=== PATIENT | female | born 1950 | race Caucasian/White ===

== ENCOUNTER 2022-07-11 03:55 | Day surgery (SDC) | payer OTHER, MEDICARE ==
[2022-07-09 13:15] VITALS: BMI 22.6
[2022-07-11] MEDS ORDERED: LIDOCAINE HCL/PF 2% SDV 5ML VIAL ONE (07:12)
[2022-07-11] MEDS ORDERED: PROPOFOL 20 ML ONE (07:12)
[2022-07-11] MEDS ORDERED: ROCURONIUM BROMIDE 50 MG/5 ML SYRINGE ONE (07:12)
[2022-07-11] MEDS ORDERED: SUCCINYLCHOLINE CHLORIDE 200 MG/10 ML SYRINGE ONE (07:12)
[2022-07-11] MEDS ORDERED: MIDAZOLAM HCL 2 MG/2 ML SINGLE DOSE VIAL ONE (07:12)
[2022-07-11] MEDS ORDERED: BUPIVACAINE HCL/PF 0.5% (5MG/ML) 10 ML VIAL ONE (07:17)
[2022-07-11] MEDS ORDERED: GENTAMICIN SO4 80 MG/2 ML VIAL ONE (07:17)
[2022-07-11] MEDS ORDERED: VANCOMYCIN 1,000 MG VIAL (RESTRICTED TO ID ONLY) ONE (07:17)
[2022-07-11] MEDS ORDERED: SEVOFLURANE 250 ML BTL ONE (07:18)
[2022-07-11] MEDS ORDERED: BUPIVACAINE LIPOSOME/PF (EXPAREL) 266 MG/20 ML VIAL ONE (07:18)
[2022-07-11] MEDS ORDERED: BACITRACIN ZINC 15 GM TUBE TOPICAL OINTMENT ONE (07:18)
[2022-07-11 07:26] LABS: INR 0.97 (0.83-1.09); PROTHROMBIN TIME (PATIENT) 11.2 SEC (9.7-13.0)
[2022-07-11 07:28] LABS: ACTIVATED PTT 50.6 SECONDS (25.2-36.5)
[2022-07-11] MEDS ORDERED: LIDOCAINE 1%/EPI 1:100000 (20 ML MULTI DOSE VIAL) IJ ONE (07:48)
[2022-07-11] MEDS ORDERED: ceFAZolin SODIUM 1 GM VIAL IVPB ONE (07:49)
[2022-07-11] MEDS ORDERED: VANCOMYCIN 1 GM in NS (PRE-DOCKED) 1,000 MG/250 ML (RESTRICTED TO ID ONLY) IVPB ONE (07:49)
[2022-07-11 08:34] VITALS: BP 120/55; PULSE 52; RESP 16; TEMP 97.7
== END 2022-07-11 09:38 | disposition home or self-care (01) ==
LOC: J2C 03:55 → UNDOADMIN 03:55 → JASU-SURG 03:55 → EDSTATUS 08:00 → JASU-SURG 09:38 → UNDODISIN 09:38
PROVIDERS: ATTEND Neurological Surgery
DX: Z53.8 Procedure and treatment not carried out for other reasons (principal)
CPT/HCPCS: 36415; 85610; 85730; 86850; 86900; 86901

== ENCOUNTER 2022-07-16 04:00 | Observation (INO) | payer OTHER, MEDICARE ==
[2022-07-15 15:21] VITALS: BMI 22.6
[2022-07-16] MEDS ORDERED: VANCOMYCIN 1,000 MG VIAL (RESTRICTED TO ID ONLY) ONE ×2 (07:01→07:43)
[2022-07-16] MEDS ORDERED: GENTAMICIN SO4 80 MG/2 ML VIAL ONE (07:01)
[2022-07-16] MEDS ORDERED: LIDOCAINE 1%/EPI 1:100000 (20 ML MULTI DOSE VIAL) IJ ONE ×2 (07:21→09:03)
[2022-07-16] MEDS ORDERED: ceFAZolin SODIUM 1 GM VIAL IVPB ONE ×2 (07:21→08:44)
[2022-07-16] MEDS ORDERED: VANCOMYCIN 1 GM in D5W (PRE-DOCKED) 1,000 MG/250 ML (RESTRICTED TO ID ONLY IVPB ONE ×2 (07:22→08:44)
[2022-07-16] MEDS ORDERED: PROPOFOL 20 ML ONE (07:41)
[2022-07-16] MEDS ORDERED: MIDAZOLAM HCL 2 MG/2 ML SINGLE DOSE VIAL ONE (07:41)
[2022-07-16] MEDS ORDERED: ROCURONIUM BROMIDE 50 MG/5 ML SYRINGE ONE (07:41)
[2022-07-16] MEDS ORDERED: LIDOCAINE HCL/PF 2% SDV 5ML VIAL ONE (07:43)
[2022-07-16] MEDS ORDERED: ceFAZolin SODIUM 1 GM VIAL ONE (07:43)
[2022-07-16] MEDS ORDERED: SODIUM CHLORIDE 0.9% P/F 10 ML VIAL IJ ONE (07:43)
[2022-07-16] MEDS ORDERED: ETOMIDATE 20 MG/10 ML VIAL IVPUSH ONE (08:28)
[2022-07-16] MEDS ORDERED: GLYCOPYRROLATE 0.2 MG/1 ML VIAL ONE ×2 (08:29→09:29)
[2022-07-16] MEDS ORDERED: TRANEXAMIC ACID 1000 MG/10 ML VIAL ONE (08:34)
[2022-07-16] MEDS ORDERED: NEOSTIGMINE METHYLSULFATE 0.5 MG/1 ML - 10 ML MDV ONE (09:30)
[2022-07-16] MEDS ORDERED: ONDANSETRON 4 MG/2 ML VIAL ONE (09:33)
[2022-07-16] MEDS ORDERED: DEXAMETHASONE SOD PHOSPHATE 4 MG/1 ML VIAL ONE (09:33)
[2022-07-16] MEDS ORDERED: ONDANSETRON 4 MG/2 ML VIAL IVPUSH PRN (09:48)
[2022-07-16] MEDS ORDERED: PROMETHAZINE HCL 25 MG/1 ML VIAL IVPB PRN (09:48)
[2022-07-16] MEDS ORDERED: oxyCODONE HCL 5 MG TABLET ONE (13:37)
[2022-07-16] MEDS: oxyCODONE HCL 5 MG TABLET PO PRN ×2 (13:40→22:07)
[2022-07-16] MEDS: LACTATED RINGERS SOLUTION 1,000 ML IV SCH (14:05)
[2022-07-16] MEDS: GABAPENTIN 300 MG CAPSULE PO PRN (18:09)
[2022-07-16] MEDS ORDERED: CYCLOBENZAPRINE HCL 10 MG TABLET (FP) PO SCH (22:00)
[2022-07-16] MEDS ORDERED: clonazePAM 0.5 MG TABLET PO SCH (22:00)
[2022-07-17] MEDS: GABAPENTIN 300 MG CAPSULE PO PRN (01:37)
[2022-07-17] MEDS: LACTATED RINGERS SOLUTION 1,000 ML IV SCH ×2 (01:41→10:36)
[2022-07-17] MEDS: oxyCODONE HCL 5 MG TABLET PO PRN ×2 (04:13→10:37)
[2022-07-17 05:31] VITALS: RESP 18
[2022-07-17 06:56] LABS: BASO % 0.2 % (0-2.0); EOS % 0.4 % (0-4.5); HEMATOCRIT 26.9 % (32.4-45.2); HEMOGLOBIN 9.3 GM/dL (10.7-15.3); LYMPH % 18.6 % (8-40); MCH 32.1 pg (25.7-33.7); MCHC 34.6 g/dl (32.0-36.0); MEAN CELL VOLUME 92.7 fl (80-96); MEAN PLT VOLUME 8.5 fl (7.5-11.1); MONO % 6.4 % (3.8-10.2); NEUT % 74.4 % (42.8-82.8); PLATELET COUNT 177 10^3/uL (134-434); RDW 13.3 % (11.6-15.6); WHITE BLOOD COUNT 8.2 K/mm3 (4.0-10.0)
[2022-07-17] MEDS ORDERED: LEVOTHYROXINE NA 88 MCG TABLET (FP) PO SCH (07:00)
[2022-07-17 07:13] LABS: POTASSIUM 4.8 mmol/L (3.5-5.1)
[2022-07-17 07:16] LABS: CALCIUM 9.6 mg/dL (8.5-10.1)
[2022-07-17 07:17] LABS: BLOOD UREA NITROGEN 21.5 mg/dL (7-18); MAGNESIUM 1.7 mg/dL (1.8-2.4)
[2022-07-17 07:20] LABS: CREATININE 0.7 mg/dL (0.55-1.3)
[2022-07-17 07:21] LABS: BILIRUBIN,TOTAL 0.6 mg/dL (0.2-1); TOT PROT 5.4 g/dl (6.4-8.2)
[2022-07-17 08:56] VITALS: TEMP 97.9
[2022-07-17] MEDS ORDERED: DOCUSATE SODIUM 100 MG CAPSULE (FP) PO SCH (10:00)
[2022-07-17] MEDS ORDERED: LATANOPROST 0.005% OPHTH SOLN 2.5ML BOTTLE OU SCH (10:00)
[2022-07-17] MEDS ORDERED: PRAMIPEXOLE DI HCL 0.75 MG PO SCH (10:00)
[2022-07-17] MEDS ORDERED: MAGNESIUM SULF 50% (8.12 MEQ/2 ML-1 GM VIAL) IVPB ONE (13:13)
[2022-07-17] MEDS ORDERED: MAGNESIUM OXIDE 400 MG TABLET (FP) PO ONE (13:50)
[2022-07-17 14:55] VITALS: BP 95/58; PULSE 64
== END 2022-07-17 15:17 | disposition home or self-care (01) ==
LOC: J2C 04:00 → INTOOBSV 04:00 → UNDOADMOB 04:00 → J2C 11:14 → J4S 14:16
PROVIDERS: ADMIT Neurological Surgery; ATTEND Internal Medicine
DX: I95.9 Hypotension, unspecified (principal); R00.1 Bradycardia, unspecified; H35.00 Unspecified background retinopathy; M47.892 Other spondylosis, cervical region; F32.9 Major depressive disorder, single episode, unspecified; Z96.653 Presence of artificial knee joint, bilateral; M19.90 Unspecified osteoarthritis, unspecified site; Z88.8 Allergy status to other drugs, medicaments and biological substances; Z87.891 Personal history of nicotine dependence
CPT/HCPCS: 36415; 80053; 83735; 84100; 84439; 84443; 84484; 85025; 86850; 86900; 86901; 86922; 93005; 93010; 93306-TC; 93970-TC; 94760; 96374; 97116-GP; 97161-GP; C9803-CS; G0378; U0003; U0005

== ENCOUNTER 2022-10-03 04:05 | Day surgery (SDC) | payer OTHER, MEDICARE ==
[2022-09-27 17:45] VITALS: BMI 24.0
[2022-10-03] MEDS ORDERED: PROPOFOL 20 ML ONE (07:02)
[2022-10-03] MEDS ORDERED: MIDAZOLAM HCL 2 MG/2 ML SINGLE DOSE VIAL ONE (07:02)
[2022-10-03] MEDS ORDERED: ROCURONIUM BROMIDE 50 MG/5 ML SYRINGE ONE (07:02)
[2022-10-03] MEDS ORDERED: HYDROmorphone HCl 2 MG/ML VIAL ONE (07:02)
[2022-10-03] MEDS ORDERED: GENTAMICIN SO4 80 MG/2 ML VIAL ONE (07:21)
[2022-10-03] MEDS ORDERED: BUPIVACAINE HCL/PF 0.5% (5MG/ML) 10 ML VIAL ONE (07:22)
[2022-10-03] MEDS ORDERED: THROMBIN (BOVINE) 5,000 UNIT VIAL TP ONE ×3 (07:22→08:10)
[2022-10-03] MEDS ORDERED: BACITRACIN ZINC 15 GM TUBE TOPICAL OINTMENT ONE (07:22)
[2022-10-03] MEDS ORDERED: HEPARIN NA (PORCINE) 5,000 UNITS/ML 1ML VIAL ONE (07:22)
[2022-10-03] MEDS ORDERED: BUPIVACAINE LIPOSOME/PF (EXPAREL) 266 MG/20 ML VIAL ONE (07:32)
[2022-10-03] MEDS ORDERED: LIDOCAINE 1%/EPI 1:100000 (20 ML MULTI DOSE VIAL) IJ ONE ×2 (07:47→09:12)
[2022-10-03] MEDS ORDERED: ceFAZolin SODIUM 1 GM VIAL IVPB ONE (07:48)
[2022-10-03] MEDS ORDERED: VANCOMYCIN 1 GM in D5W (PRE-DOCKED) 1,000 MG/250 ML (RESTRICTED TO ID ONLY IVPB ONE (07:48)
[2022-10-03] MEDS ORDERED: GENTAMICIN SO4 80 MG/2 ML VIAL IVPB ONE (08:10)
[2022-10-03] MEDS ORDERED: HYDROGEN PEROXIDE 473 ML PO ONE (08:11)
[2022-10-03] MEDS ORDERED: ePHEDrine SULFATE 50 MG/1 ML AMPULE ONE (08:27)
[2022-10-03] MEDS ORDERED: SUGAMMADEX SODIUM 200 MG/2 ML VIAL ONE (09:44)
[2022-10-03] MEDS ORDERED: ONDANSETRON 4 MG/2 ML VIAL IVPUSH PRN (10:27)
[2022-10-03] MEDS ORDERED: ASPIRIN 325 MG TABLET PO ONE ×2 (10:28→10:32)
[2022-10-03] MEDS ORDERED: LACTATED RINGERS SOLUTION 1,000 ML IV SCH (10:30)
[2022-10-03] MEDS ORDERED: PATIENT'S OWN MEDICATION (NON-FORMULARY) (Calcium Citrate [Calcium Citrate] 200 MG Tablet) PO SCH ×2 (10:45→19:30)
[2022-10-03] MEDS ORDERED: DEXTROSE 5%-NORMAL SALINE 1,000 ML IV SCH (10:45)
[2022-10-03 13:34] LABS: POTASSIUM 3.7 mmol/L (3.5-5.1)
[2022-10-03 13:35] LABS: CALCIUM 9.4 mg/dL (8.5-10.1)
[2022-10-03 13:36] LABS: BLOOD UREA NITROGEN 24.1 mg/dL (7-18)
[2022-10-03 13:39] LABS: CREATININE 0.9 mg/dL (0.55-1.3)
[2022-10-03] MEDS ORDERED: PATIENT'S OWN MEDICATION (NON-FORMULARY) (Oxycodone Hcl [Oxaydo] 5 MG Tablet.Orl) PO SCH ×2 (14:00→19:30)
[2022-10-03] MEDS ORDERED: PATIENT'S OWN MEDICATION (NON-FORMULARY) (Gabapentin [Gabapentin] 600 MG Tablet) PO SCH (14:00)
[2022-10-03 14:34] VITALS: BP 107/44; PULSE 49; RESP 18; TEMP 97.7
[2022-10-03] MEDS ORDERED: clonazePAM 0.5 MG TABLET PO PRN (15:25)
[2022-10-03] MEDS ORDERED: MUPIROCIN 2% TOPICAL OINTMENT FOR DECOLONIZATION NS SCH ×2 (22:00)
[2022-10-03] MEDS ORDERED: PATIENT'S OWN MEDICATION (NON-FORMULARY) (Magnesium Oxide [Magnesium Oxide] 400 MG Tablet) PO SCH (22:00)
[2022-10-03] MEDS ORDERED: CHLORHEXIDINE GLUCONATE 4% CLEANSER FOR DECOLONIZATION TP SCH ×2 (22:00)
[2022-10-03] MEDS ORDERED: CYCLOBENZAPRINE HCL 10 MG TABLET (FP) PO SCH (22:00)
[2022-10-03] MEDS ORDERED: MAGNESIUM OXIDE 400 MG TABLET (FP) PO SCH (22:00)
[2022-10-03] MEDS ORDERED: valACYclovir HCL 500 MG TABLET (FP) PO SCH (22:00)
[2022-10-03] MEDS ORDERED: GABAPENTIN 300 MG CAPSULE PO SCH (22:00)
[2022-10-03] MEDS ORDERED: PATIENT'S OWN MEDICATION (NON-FORMULARY) (Clonazepam [Clonazepam] 1 MG Tablet) PO SCH (22:00)
[2022-10-04] MEDS ORDERED: LEVOTHYROXINE NA 88 MCG TABLET (FP) PO SCH (07:00)
[2022-10-04] MEDS ORDERED: ARTIFICIAL TEARS (POLYVINYL ALCOHOL) OPTH DROPS OU SCH (10:00)
[2022-10-04] MEDS ORDERED: PRAMIPEXOLE DI HCL 0.75 MG PO SCH ×2 (10:00)
[2022-10-04] MEDS ORDERED: PROPYLENE GLYCOL OU SCH (10:00)
[2022-10-04] MEDS ORDERED: MULTIVITAMINS (DAILY MVI) TABLET (FP) PO SCH (10:00)
[2022-10-04] MEDS ORDERED: DOCUSATE SODIUM 100 MG CAPSULE (FP) PO SCH (10:00)
[2022-10-04] MEDS ORDERED: [UNRECOGNIZED DRUG - OTHER] OU SCH (10:00)
[2022-10-04] MEDS ORDERED: PATIENT'S OWN MEDICATION (NON-FORMULARY) (Multivitamin [Multivitamin] 1 EACH Tablet) PO SCH (10:00)
[2022-10-04] MEDS ORDERED: LACTOBACILLUS ACIDOPHILUS 1 TABLET PO SCH (10:00)
[2022-10-04] MEDS ORDERED: PEG OU SCH (10:00)
[2022-10-04] MEDS ORDERED: ASCORBIC ACID 500 MG/5 ML UNIT DOSE CUP PO SCH (10:00)
== END 2022-10-03 13:30 | disposition home or self-care (01) ==
LOC: UNDOADMIN 04:05 → JASU-SURG 04:05 → J2C 04:05 → EDSTATUS 08:00 → JASU-SURG 13:30
PROVIDERS: ATTEND Neurological Surgery
PROC: 00JU0ZZ Inspection of Spinal Canal, Open Approach (ICD-10-PCS; principal; 2022-10-03 08:00)
DX: M47.812 Spondylosis without myelopathy or radiculopathy, cervical region (principal); M40.202 Unspecified kyphosis, cervical region; I49.3 Ventricular premature depolarization; Z53.09 Procedure and treatment not carried out because of other contraindication
CPT/HCPCS: 36415; 76000-TC-FY; 80048; 82550; 82553; 84484; 93005; 93010; 94760; J1644